=== PATIENT | female | born 1995 | race Caucasian/White ===

== ENCOUNTER → 2020-09-28 | Outpatient (CLI) | payer BC | END | disposition home or self-care (01) | LOC: LAB 16:00 → LAB SHORT 16:00 | DX: D22.5 Melanocytic nevi of trunk (principal); D48.5 Neoplasm of uncertain behavior of skin; L70.0 Acne vulgaris; L08.9 Local infection of the skin and subcutaneous tissue, unspecified; Z80.8 Family history of malignant neoplasm of other organs or systems; Z71.89 Other specified counseling | CPT/HCPCS: 87070; 87205 ==